=== PATIENT | female | born 1940 | race Caucasian/White ===

== ENCOUNTER 2022-12-16 16:30 | Inpatient (IN) | payer MEDICARE, BC, SELFPAY ==
[2022-12-16 16:37] VITALS: BP 146/76; PULSE 78; RESP 20; TEMP 37.2; O2SAT 97; BMI 40.2
--- NOTE | 2022-12-16 16:52 | CRLHL7_ITS ---
For Patients: As a result of the Cures Act, medical imaging exams and procedure reports are released immediately into your electronic medical record. You may view this report before your referring provider. If you have questions, please contact your health care provider. INDICATION: Cough, left basilar rales, weakness TECHNIQUE: Chest 2 view. Permanently recorded images are archived. COMPARISON: None. FINDINGS: Cardiovascular and mediastinum: Cardiomegaly. Atherosclerotic thoracic. Lungs and pleural spaces: The lungs are clear. No pleural effusion or pneumothorax. Bones and soft tissues: Degenerative changes of the spine and bilateral shoulders. No acute findings. IMPRESSION: No evidence of an acute pulmonary process. Cardiomegaly. Dictated by Frandy Tinsley MD @ 12/16/2022 7:50:30 PM (Electronically Signed)
--- NOTE | 2022-12-16 16:53 | ED_ITS ---
HPI - General Adult General Date Seen: 12/16/22 Chief complaint: Nausea/Vomiting Stated complaint: Ill Time Seen by Provider: 12/16/22 16:31 History of Present Illness HPI narrative: This is a pleasant 82-year-old female presenting by private car with her daughter from home for evaluation of generalized weakness, fall. She has a past medical history including hypertension, hypothyroidism, chronic and dysgeusia after COVID last year, obesity, previous ventral/incisional hernia with surgical repair. She does not have a history of heart disease, stents, valve surgery, or arrhythmias. No history of stroke. She notes that she has had chronically a poor appetite since she had coronavirus last December. This is due to chronic lost of taste and smell. She has had cough ongoing for the past few weeks which she initially attributed to dust from the gravel road by her house and the dry weather. However her cough has gotten worse lately, in the past few days. She is not sure if he is producing any sputum or not but she is coughing a lot more. Her cough sounds wet. She is not short of breath. She does have a little bit of pain in the center of her chest only when she coughs. Since Monday, 2 days ago she has also been more nauseous than normal and has had a dramatic decrease in her oral intake. Her daughter has been forcing her to drink fluids such as water and 7 up. Even with that she is producing less urine. She does not have any dysuria, urgency, frequency, hematuria. She is not having diarrhea. She is not really short of breath. This morning when she was trying to get up and get out of bed she was very weak and she slid off the edge of her bed onto the floor. She did land on her right leg but did not injure it. She was too weak to get herself off the floor so she slid herself across the floor to get to her phone. Subsequently she called her daughter. Her daughter and son-in-law responded in the helped lift drop the floor. Because of her weakness they brought her to the ER. She normally receives her care through the [facility]. They called the ER at [place] and were told that the ER was very busy so they chose to come here to [place] instead. She does not have a headache. No sore throat. No earache. No focal numbness or weakness in her arms or legs. She just has generalized weakness. Although she landed on her right leg this morning is not painful and she does not think it is injured from the fall. She says it was more of a gentle slide than a fall. She has been nauseous and had poor appetite but no vomiting today. She had 1 episode of nonbilious, nonbloody emesis yesterday. Bowel movements have been normal. Nothing black or bloody. She has been urinating less than normal but no other symptoms. She does not have complete recollection of her med list but she thinks she takes a thyroid medicine, some blood pressure pills, pills for her macular degeneration. She takes aspirin. No other anticoagulant. She does have a diuretic that she takes only as needed when she gets peripheral edema. She has not been needing to take it lately because she has really been doing well with her salt intake and not experiencing much edema. Related Data Home Medications Medication Instructions Recorded Confirmed alprazolam 0.25 mg tablet 0.25 mg PO BID PRN 12/16/22 12/16/22 aspirin 325 mg tablet 325 mg PO DAILY 12/16/22 12/16/22 atenolol 25 mg tablet 25 mg PO DAILY 12/16/22 12/16/22 levothyroxine 125 mcg tablet 125 mcg PO DAILY 12/16/22 12/16/22 [facility] 12/16/22 qqfienug-lbb-vzyu-FA-Ca carb-vit K 1 tab PO DAILY 12/16/22 12/16/22 18 mg iron-400 mcg-500 mg tablet (One-A-Day Womens Formula) sodium chloride 5 % eye drops 1 drp ophthalmic (eye) DAILY 12/16/22 12/16/22 Allergies Allergy/AdvReac Type Severity Reaction Status Date / Time No Known Drug Allergies Allergy Verified 12/16/22 16:37 [facility] Medical History (Updated 12/16/22 @ 21:32 by Sita Keyes MD) Umbilical hernia ?K42.9 - Umbilical hernia without obstruction or gangrene (ICD-10) Anemia ?D64.9 - Anemia, unspecified (ICD-10) H/O rosacea ?Z87.2 - Personal history of diseases of the skin and subcutaneous tissue (ICD-10) Surgical History (Updated 12/16/22 @ 21:28 by Sita Keyes MD) H/O: hysterectomy ?Z90.710 - Acquired absence of both cervix and uterus (ICD-10) History of hip replacement ?Z96.649 - Presence of unspecified artificial hip joint (ICD-10) Social History (Updated 12/16/22 @ 21:16 by Sita Keyes MD) Narrative: Kat is and lives in [place]. She has 4 adult children and daughter Luz Elena would be medical decision maker if needed. 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 She is also known for her lefse. Nonsmoker, no ETOH. Requests DNR/DNI status. Smoking Status: Unknown if ever smoked Do you use any of these nicotine containing products: None Second hand tobacco smoke exposure: No How often do you have a drink containing alcohol: never How often do you have six or more drinks on one occasion: Never AUDIT-C Alcohol total score: 0 Non-prescribed substance use: denies use service: No Exam Narrative: Exam Narrative: Constitutional: Appears well-developed and well-nourished. Alert. Conversant. She looks tired and run down but not overtly septic. Is a bit weak and requires slight assist to sit up in bed. HENT: Head: Atraumatic. Nose: Nose normal. Mouth/Throat: Oral mucosa is clear but mucous membranes are dry and oral secretions are tacky. no trismus. Pharynx normal. Tonsils symmetric. No tonsillar enlargement, erythema, or exudate. Eyes: Conjunctivae normal. EOM normal. Pupils equal, round, and reactive to light. No scleral icterus. Neck: Normal range of motion. Neck supple. No tracheal deviation present. No JVD Cardiovascular: Normal rate, regular rhythm. No gallop. No friction rub. No murmur heard. Symmetric radial and PT artery pulses Pulmonary/Chest: Effort normal. No stridor. No respiratory distress. No wheezes. Left basilar>> right basilar rales. No rhonchi . No tenderness. Abdominal: Soft. Bowel sounds normal. No distension. Palpable upper midline nontender mass consistent with ventral hernia. No evidence for incarceration or obstruction. No tenderness. No rebound. No guarding. Musculoskeletal: RUE: Normal range of motion. No tenderness. No deformity LUE: Normal range of motion. No tenderness. No deformity RLE: Normal range of motion. Trace edema. No tenderness. No deformity LLE: Normal range of motion. Trace edema. No tenderness. No deformity Lymph: No cervical adenopathy. Neurological: Mental status normal. Attention normal. Alert and oriented x3. GCS 15. Memory normal. Speech fluent. Cognition normal. Cranial Nerves intact II-XII except I did not formally test gag or visual acuity. EOMI. Palate elevates symmetrically and tongue protrudes in the midline. Strength: 5/5 trapezius on the right and left 5/5 deltoid on the right and left 5/5 biceps on the right and left 5/5 triceps on the right and left 5/5 ammonia solution preparer on the right and left 5/5 thumb opposition on the right and le ft 5/5 finger abduction on the right and le ft 5/5 hip flexors (L3) on the right and le ft 5/5 quadriceps (L4) on the right and lef t 5/5 tibialis anterior on the right and l eft 5/5 EHL (L5) on the right and left 5/5 gastrocnemius (S1) on the right and left 5/5 hamstring on the right and left Sensation intact to light touch in both upper extremities (C4-T1) Sensation intact to light touch in Both lower extremities (L4-S1). Finger to nose and coordination normal. Gait not assessed due to generalized weak. Normal coordination Skin: Skin is warm and dry. No rash noted. No pallor. Normal capillary refill. Psychiatric: Normal mood. Normal affect. Const: Vital Signs, click to edit/add: Vital Signs - 24 hr 12/16/22 16:37 Temperature 99 F Pulse Rate [Pulse Oximeter] 78 Respiratory Rate 20 Blood Pressure [Ri ght Upper Arm] 146/76 H Pulse Oximetry 97 Oxygen Delivery Me thod Room Air Course Vital Signs Vital signs: Initial Vital Signs Temperature 99 F 12/16/22 16:37 Temperature Source Temporal Artery Scan 12/16/22 16:37 Pulse Rate 78 12/16/22 16:37 Respiratory Rate 20 12/16/22 16:37 Blood Pressure 146/76 H 12/16/22 16:37 Blood Pressure Mean 99 12/16/22 16:37 Blood Pressure Position Semi-Fowlers 12/16/22 16:37 Pulse Oximetry 97 12/16/22 16:37 Oxygen Delivery Method Room Air 12/16/22 16:37 Vital Signs Temperature 99 F 12/16/22 16:37 Pulse Rate 78 12/16/22 16:37 Respiratory Rate 20 12/16/22 16:37 Blood Pressure 146/76 H 12/16/22 16:37 Pulse Oximetry 97 12/16/22 16:37 Oxygen Delivery Method Room Air 12/16/22 16:37 Temperature 99 F 12/16/22 16:37 Pulse Rate 78 12/16/22 16:37 Respiratory Rate 20 12/16/22 16:37 Blood Pressure 146/76 H 12/16/22 16:37 Pulse Oximetry 97 12/16/22 16:37 Oxygen Delivery Method Room Air 12/16/22 16:37 Medical Decision Making MDM Narrative Medical decision making narrative: Pleasant 82-year-old female who generally gets her medical clear through the [facility] presents to the ER today with a 3 day history of generalized weakness, poor appetite, decreased oral intake, nausea, 1 episode of vomiting. She also has a chronic cough worse over the past couple of days. Clinically she appears to be quite dehydrated. She has generalized weakness and is not able to walk and care for herself at home. Differential for symptoms is broad. Fortunately COVID, influenza, RSV is negative by PCR. On my clinical exam she had does have left basilar rales. However chest x-ray does not show any clear infiltrate. I wonder if there may be a pneumonia it is not yet blossoming into a full x-ray infiltrate because of dehydration. Fortunately she is satting normally on room air. No respiratory distress or hypoxia. She is not having any wheezing to suggest COPD. Consider possible myocardial ischemia. EKG shows atrial fibrillation, rate controlled, but No ischemia. Troponin normal. Atrial fibrillation is a new diagnosis for this patient. CBC shows normal white count but a neutrophil predominance. She is mildly anemic with a hemoglobin of 10 but is not have any recent black or bloody stools or hematemesis or any clear symptoms of bleeding. She is also thrombocytopenic with a platelet count of 109. Unclear if this is her baseline or not. No signs of bleeding. Daughter was able to show me previous labs through her [facility] my chart. She last CBC was in April 2021. At that time white blood cell count was normal. Hemoglobin was 10.4 (unchanged from today) and platelet count was slightly low at 155. Metabolic probe shows mildly low sodium at 1:33 a.m., low bicarb at 19 con sistent with dehydration. BUN and creatinine are abnormal at 49 and 2.0.. Most recent kidney function test was in July. At that time BUN was 25, creatinine 0.96. we suspect this is an acute kidney injury from dehydration. Blood sugar normal. Anion gap normal. Urinalysis is ordered here in the ER, but not obtained because the patient is not producing urine yet. She is receiving her 2 L of IV fluid. Venous lactic is minimally elevated 2.1, suspect due to dehydration. We will recheck after she completes 2 L of fluid. Discussed with Dr. Keyes. Lab Data Labs: Lab Results 12/16/22 12/16/22 12/16/22 Range/Units 16:35 17:40 18:20 WBC 8.17 (4.50-11.00) K/uL RBC 3.52 L (4.00-5.20) m/uL Hgb 10.4 L (12.0-16.0) gm/dL Hct 33.1 (33.0-51.0) % MCV 94 (80-100) fL MCH 30 (26-34) pg MCHC 31 L (32-36) gm/dL RDW Coeff of Nirmala 15.6 H (11.5-15.5) % Plt Count 109 L (140-440) K/uL Neut % (Auto) 82.7 H (42.0-72.0) % Lymph % (Auto) 5.1 L (20-44) % Yancey % (Auto) 11.4 H (0.0-11.0) % Eos % (Auto) 0.0 (0.0-7.0) % Baso % (Auto) 0.1 (0.0-3.0) % Neut # (Auto) 6.80 (1.7-7.0) K/uL Lymph # (Auto) 0.40 L (0.90-2.90) K/uL Yancey # (Auto) 0.90 (0.00-0.90) K/UL Eos # (Auto) 0.00 (0.00-0.50) K/uL Baso # (Auto) 0.01 (0.00-0.30) K/uL Abs Immat Gran (auto) 0.06 (0.00-0.30) K/uL Imm/Tot Granulo (auto) 0.7 % Sodium 133 L (135-149) mmol/L Potassium 4.2 (3.6-5.1) mmol/L Chloride 103 (96-114) mmol/L Carbon Dioxide 19 L (20-32) mmol/L Anion Gap 11 (7-15) mEq/L BUN 49 H (7-30) mg/dL Creatinine 2.0 H (0.5-1.5) mg/dL Estimated Creat Clear 16.86 Estimated GFR 24 ml/min Glucose 116 H (60-115) mg/dL Lactate 2.1 H (0.5-1.9) mmol/L Calcium 8.8 (8.4-10.6) mg/dL Total Bilirubin 0.4 (0.1-1.5) mg/dL AST 39 H (12-35) U/L ALT 18 (4-35) U/L Alkaline Phosphatase 57 (40-150) U/L Troponin I 0.04 (0.01-0.04) ng/mL NT-Pro-B Natriuret Pep 7910 pg/mL Total Protein 7.8 (6.0-8.3) g/dL Albumin 4.1 (3.3-5.0) g/dL Lipase 71 (23-300) U/L SARS-CoV-2 (PCR) Negative SARS-CoV-2 (Negative) Influenza Type A (PCR) Negative PCR FLU A (Negative) Influenza Type B (PCR) Negative PCR FLU B (Negative) RSV (PCR) Negative PCR RSV (Negative) Imaging Data Chest x-ray: Attestation: I have reviewed the pertinent imaging results. My impression: Although clinically she has rales in the left base, no definite infiltrate. ECG Data Attestation: I personally reviewed and interpreted this ECG as follows: Interpretation: Atrial fibrillation. rate 73 WA n/a QRS axis normal QR ass access. No pathologic Q-waves. ST segment/T wave: No ST segment elevation or depression. Nonspecific T-wave flattening lead III QTc: 409 Discharge Plan Discharge Clinical Impression: MARTÍN (acute kidney injury), Acute dehydration, Atrial fibrillation, Cough, Thrombocytopenia Patient Disposition: Admitted As Observation
[2022-12-16 17:28] LABS: PCR FLU A Negative PCR FLU A (Negative); PCR FLU B Negative PCR FLU B (Negative); PCR RSV Negative PCR RSV (Negative); SARS PCR* Negative SARS-CoV-2 (Negative)
[2022-12-16] MEDS: 0.9 % SODIUM CHLORIDE 1000 ml 1,000 ML IV ×2 (17:30→19:08)
[2022-12-16 17:48] LABS: Lactate* 2.1 mmol/L (0.5-1.9)
[2022-12-16 17:53] LABS: Basophils Absolute Auto 0.01 K/uL (0.00-0.30); Basophils Percent Auto 0.1 % (0.0-3.0); Hematocrit 33.1 % (33.0-51.0); Hemoglobin* 10.4 gm/dL (12.0-16.0); Immature Granulocytes Abs Auto 0.06 K/uL (0.00-0.30); Immature Granulocytes Pct Auto 0.7 %; Lymphocytes Percent Auto 5.1 % (20-44); Mean Corpuscular HGB Conc 31 gm/dL (32-36); Mean Corpuscular Hemoglobin 30 pg (26-34); Mean Corpuscular Volume 94 fL (80-100); Monocytes Percent Auto 11.4 % (0.0-11.0); Neutrophils Percent Auto 82.7 % (42.0-72.0); Platelet Count* 109 K/uL (140-440); RDW Coefficient of Variation % 15.6 % (11.5-15.5); Red Blood Count 3.52 m/uL (4.00-5.20); White Blood Count* 8.17 K/uL (4.50-11.00)
[2022-12-16 17:55] LABS: Slide Review Reflex No
[2022-12-16 18:34] LABS: Troponin I* 0.04 ng/mL (0.01-0.04)
[2022-12-16 18:53] LABS: Alanine Aminotransferase* 18 U/L (4-35); Albumin* 4.1 g/dL (3.3-5.0); Anion Gap 11 mEq/L (7-15); Aspartate Amino Transferase* 39 U/L (12-35); Bilirubin Total* 0.4 mg/dL (0.1-1.5); Blood Urea Nitrogen* 49 mg/dL (7-30); Calcium* 8.8 mg/dL (8.4-10.6); Carbon Dioxide* 19 mmol/L (20-32); Chloride* 103 mmol/L (96-114); Est. Creatinine Clearance* 16.86; Estimated Glomerular Filt Rate 24 ml/min; Glucose* 116 mg/dL (60-115); Potassium* 4.2 mmol/L (3.6-5.1); Sodium* 133 mmol/L (135-149); Total Protein* 7.8 g/dL (6.0-8.3)
[2022-12-16 18:54] LABS: Alkaline Phosphatase* 57 U/L (40-150)
[2022-12-16 19:14] LABS: Lipase* 71 U/L (23-300)
[2022-12-16 19:28] LABS: NT Pro B Type NatriureticPept* 7910 pg/mL
[2022-12-16 20:30] VITALS: TEMP 37.9
[2022-12-16] MEDS: ACETAMINOPHEN 325 MG TABLET 975 MG PO (20:30)
[2022-12-16 20:38] VITALS: BP 140/77; PULSE 92; RESP 24; TEMP 38.1; O2SAT 93; BMI 40.3
--- NOTE | 2022-12-16 21:01 | PM.IMHP1 ---
Hospitalist- H&P: HPI History of Present Illness Date Seen: 12/16/22 Chief complaint: Ill Narrative: Kat Valente is a 82 year old female who presented to the emergency room with her daughter today for weakness, decreased p.o. intake, fall. Patient has had decreased appetite and weight loss since having COVID last December. She believes she has lost approximately 16 lb in the past year 2/2 dysgeusia. Over the past few days, her appetite has been even lower than usual, and she has also had a cough (present for a few weeks, worse in the last few days). She has been making minimal urine 2/2 poor intake. She notes intermittent nausea and feels that her stomach hurts intermittently when she is hungry. No melena or hematochezia. Unsure of last colonoscopy. Today, she was noted to be more weak and slid off of her bed onto the floor, and was unable to get up. She called her daughter who was able to help her and bring her to the emergency room. ER course and findings: - rate controlled atrial fibrillation on EKG (baseline) - hemoglobin of 10.4 (this is also baseline, per [facility] MyChart), platelets 109 (150 baseline, per MyChart) - elevated lactate - Creatinine 2.0 (<1 per My Chart results) - received 1L bolus of NS - exam consistent with clinical PNA, formal radiology read of CXR negative for acute infectious process, + LVH noted Given patient's illness, weakness, and MARTÍN, she is admitted to the hospital. Upon arrival to the floor, patient noted to have a temperature of 100.5 History updated below, supplemented by my chart review and history from daughter Luz Elena. Review of Systems Narrative: - umbilical hernia, unchanged - 16 lb weight loss in the last year as noted above - no dysuria - intermittent GERD symptoms, often worse at night if she eats supper close to bedtime - daughter notes that patient has anxiety does seem to be worse over the past few months (she occasionally has a tremor when she is anxious); aKt was previously on Lexapro but self discontinued this [facility] Medical History (Updated 12/16/22 @ 21:32 by Sita Keyes MD) Umbilical hernia ?K42.9 - Umbilical hernia without obstruction or gangrene (ICD-10) Anemia ?D64.9 - Anemia, unspecified (ICD-10) H/O rosacea ?Z87.2 - Personal history of diseases of the skin and subcutaneous tissue (ICD-10) Surgical History (Updated 12/16/22 @ 21:28 by Sita Keyes MD) H/O: hysterectomy ?Z90.710 - Acquired absence of both cervix and uterus (ICD-10) History of hip replacement ?Z96.649 - Presence of unspecified artificial hip joint (ICD-10) Social History (Updated 12/16/22 @ 21:16 by Sita Keyes MD) Narrative: Kat is and lives in [place]. She has 4 adult children and daughter Luz Elena would be medical decision maker if needed. 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 She is also known for her lefse. Nonsmoker, no ETOH. Requests DNR/DNI status. Smoking Status: Unknown if ever smoked Do you use any of these nicotine containing products: None Second hand tobacco smoke exposure: No How often do you have a drink containing alcohol: never How often do you have six or more drinks on one occasion: Never AUDIT-C Alcohol total score: 0 Non-prescribed substance use: denies use service: No Meds Home Medications and Allergies Home Medications Medication Instructions Recorded Confirmed Type alprazolam 0.25 mg tablet 0.25 mg PO BID PRN 12/16/22 12/16/22 History aspirin 325 mg tablet 325 mg PO DAILY 12/16/22 12/16/22 History atenolol 25 mg tablet 25 mg PO DAILY 12/16/22 12/16/22 History levothyroxine 125 mcg tablet 125 mcg PO DAILY 12/16/22 12/16/22 History [facility] 12/16/22 History iuodcdio-ony-zuys-FA-Ca carb-vit K 1 tab PO DAILY 12/16/22 12/16/22 History 18 mg iron-400 mcg-500 mg tablet (One-A-Day Womens Formula) sodium chloride 5 % eye drops 1 drp ophthalmic (eye) DAILY 12/16/22 12/16/22 History Allergies Allergy/AdvReac Type Severity Reaction Status Date / Time No Known Drug Allergies Allergy Verified 12/16/22 16:37 Exam Narrative: Exam Narrative: GEN: Alert and answering questions appropriately, does feel warm to touch and appears ill but nontoxic HEENT: EOMIs bilaterally, no scleral icterus, no adenopathy over cervical or clavicular regions CV: Irregular rhythm with rate in the 80s, no concerning murmurs R: No wheezing, rales L base, adequate air movement Ab: soft, nontender, + umbilical mass c/w history of hernia (firm) Ext: wwp, no concerning edema Skin: Malar rash, no other concerning skin lesions noted Neuro: No focal deficits or tremor noted Psych: Appropriate Const: Vital Signs, click to edit/add: Vital Signs - 24 hr 12/16/22 16:37 Temperature 99 F Pulse Rate [Pulse Oximeter] 78 Respiratory Rate 20 Blood Pressure [Ri ght Upper Arm] 146/76 H Pulse Oximetry 97 Oxygen Delivery Me thod Room Air Hospitalist - H&P: Result Labs Labs: Short CBC 12/16/22 Range/Units 17:40 WBC 8.17 (4.50-11.00) K/uL Hgb 10.4 L (12.0-16.0) gm/dL Hct 33.1 (33.0-51.0) % Plt Count 109 L (140-440) K/uL BMP 12/16/22 18:20 Sodium 133 L Potassium 4.2 Chloride 103 Carbon Dioxide 19 L BUN 49 H Creatinine 2.0 H Glucose 116 H Calcium 8.8 Cardiac Enzymes 12/16/22 Range/Units 18:20 Troponin I 0.04 (0.01-0.04) ng/mL Liver Function 12/16/22 Range/Units 18:20 Total Bilirubin 0.4 (0.1-1.5) mg/dL AST 39 H (12-35) U/L ALT 18 (4-35) U/L Alkaline Phosphatase 57 (40-150) U/L Albumin 4.1 (3.3-5.0) g/dL Assessment and Plan Assessment and plan (1) Cough: Problem comment: - in addition to fever and decreased po intake - negative RSV/flu/COVID - exam c/w L-sided pneumonia - formal CXR read negative for infiltrate, but given fever and exam, will initiate Ceftriaxone and Azithromycin 12/16 and repeat CXR 12/17 - obtain TTE to evaluate for any CHF that may be contributing Status: Acute (2) MARTÍN (acute kidney injury): Problem comment: - most c/w prerenal azotemia given illness and decreased po intake - continue IVFs, check UA and reassess renal function in the morning Status: Acute (3) Anemia: Problem comment: - baseline Hgb of 10.4 on MyChart review - no evidence of acute bleeding - will add iron studies, PPI Status: Acute (4) Thrombocytopenia: Problem comment: - possibly related to acute illness, continue to follow Status: Acute (5) Atrial fibrillation: Problem comment: - rate controlled, on Atenolol - takes 325 ASA for anticoagulation - follow on telemetry Status: Acute Plan - per above - SCDs and renally dosed Lovenox for ppx - daughter Luz Elena updated at bedside, questions answered
[2022-12-16 21:10] LABS: Lactate* 0.8 mmol/L (0.5-1.9)
[2022-12-16 21:57] LABS: Thyroid Stimulating Hormone* 0.044 uIU/mL (0.270-4.20)
[2022-12-16] MEDS: 0.9 % SODIUM CHLORIDE 1000 ml 1,000 ML 125 ML IV (22:40)
[2022-12-16] MEDS: cefTRIAXone 1 GM in 0.9 % SODIUM CHLORIDE Mini-bag 100 ML IVPB (22:41)
[2022-12-16] MEDS: SODIUM CHLORIDE 0.9 % (FLUSH) 10 ML SYRINGE 5 ML IVF (22:41)
[2022-12-16] MEDS: AZITHROMYCIN 250 MG TABLET 500 MG PO (22:42)
[2022-12-16 22:46] LABS: Procalcitonin* 3.86 ng/mL (<0.50)
[2022-12-16 23:00] VITALS: BP 135/56; PULSE 71; PULSE 80; RESP 22; TEMP 37.2; O2SAT 95
[2022-12-16 23:05] VITALS: TEMP 37.2
[2022-12-17] VITALS (52 sets, daily range): BP systolic 72–156; BP diastolic 31–106; PULSE 72–110; RESP 20–36; TEMP 36.1–38.4; O2SAT 83–98
[2022-12-17] MEDS: OMEPRAZOLE 20 MG CAPSULE DR 40 MG PO (06:44)
[2022-12-17] MEDS: 0.9 % SODIUM CHLORIDE 1000 ml 1,000 ML 125 ML IV ×2 (06:44→08:35)
[2022-12-17] MEDS: LEVOTHYROXINE 125 MCG TABLET PO (06:44)
[2022-12-17 06:48] LABS: Basophils Absolute Auto 0.02 K/uL (0.00-0.30); Basophils Percent Auto 0.4 % (0.0-3.0); Eosinophils Absolute Auto 0.02 K/uL (0.00-0.50); Eosinophils Percent Auto 0.4 % (0.0-7.0); Hematocrit 31.8 % (33.0-51.0); Hemoglobin* 9.8 gm/dL (12.0-16.0); Immature Granulocytes Abs Auto 0.11 K/uL (0.00-0.30); Immature Granulocytes Pct Auto 2.1 %; Lymphocytes Percent Auto 8.6 % (20-44); Mean Corpuscular HGB Conc 31 gm/dL (32-36); Mean Corpuscular Hemoglobin 30 pg (26-34); Mean Corpuscular Volume 96 fL (80-100); Monocytes Percent Auto 7.5 % (0.0-11.0); Platelet Count* 96 K/uL (140-440); RDW Coefficient of Variation % 15.9 % (11.5-15.5); Red Blood Count 3.31 m/uL (4.00-5.20); White Blood Count* 5.34 K/uL (4.50-11.00)
[2022-12-17 06:51] LABS: Slide Review Reflex No
--- NOTE | 2022-12-17 06:51 | PC.NURSE ---
END OF SHIFT NOTE: PT APPEARS DECONDITIONED AND FATIGUED. A&Ox3. DENIES CP, SOB, N/V. AMBULATES WITH A1/WALKER. VSS ON RA; MAX TEMP 100.5 ORALLY; PRN FEVER ACTIVITIES MANAGER GIVEN AND ROOM TEMPERATURE TURNED DOWN; THIS WAS EFFECTIVE. 0-4/10 CHEST/RIB PAIN WITH COUGH. NON-PRODUCTIVE, INTERMITTENT COUGH. PT SLEPT WELL OVERNIGHT. TELE READS AFIB. PT REPORTS ?I DON?T FEEL WEAK THIS MORNING.? INCONTINENT OF BLADDER X1. BED ALARM ON AND CALL LIGHT WITHIN PT?S REACH.
[2022-12-17 07:04] LABS: Albumin* 3.5 g/dL (3.3-5.0); Chloride* 108 mmol/L (96-114); Potassium* 3.9 mmol/L (3.6-5.1); Sodium* 136 mmol/L (135-149)
[2022-12-17 07:06] LABS: Bilirubin Total* 0.4 mg/dL (0.1-1.5); Est. Creatinine Clearance* 16.86; Estimated Glomerular Filt Rate 24 ml/min; Iron* 26 ug/dL (37-170)
[2022-12-17 07:07] LABS: Alanine Aminotransferase* 19 U/L (4-35); Alkaline Phosphatase* 49 U/L (40-150); Anion Gap 8 mEq/L (7-15); Aspartate Amino Transferase* 45 U/L (12-35); Blood Urea Nitrogen* 53 mg/dL (7-30); Calcium* 8.2 mg/dL (8.4-10.6); Carbon Dioxide* 20 mmol/L (20-32); Glucose* 96 mg/dL (60-115); Total Protein* 6.8 g/dL (6.0-8.3)
[2022-12-17 07:13] LABS: Appearance Urine Cloudy (Clear); Bilirubin Urine Negative (Negative); Blood Urine Trace-intact (Negative); Color Urine Yellow (Yellow); Glucose Urine Negative (Negative); Ketones Urine Negative (Negative); Leukocyte Esterase Urine 1+ (Negative); Nitrite Urine Positive (Negative); Protein Urine 2+ (Negative); Specific Gravity Urine 1.025 (1.000-1.030); Urobilinogen Urine 0.2 (0.2-1.0); pH Urine 6.5 (5.0-8.5)
[2022-12-17 07:15] LABS: Percent Iron Saturation 11 % (20-50); Total Iron Binding Capacity 228 ug/dL (265-497)
[2022-12-17 07:24] LABS: Procalcitonin* 4.92 ng/mL (<0.50)
[2022-12-17 07:25] LABS: Bacteria Urine Many; RBC Urine 0-2 (0-2); Squamous Epithelial Cell Urine Moderate (None-Few)
[2022-12-17 07:26] LABS: Fine Granular Casts Urine Few
[2022-12-17] MEDS: atenoloL 25 MG TABLET PO (08:34)
[2022-12-17] MEDS: ALPRAZolam 0.25 MG TABLET PO (11:11)
--- NOTE | 2022-12-17 11:52 | PC.NURSE ---
CHEMICAL RESEARCH TECHNICIAN APPLIED MEPILEX SACRAL BORDER DRESSING TO SACRAL/COCCYX AREA THIS MORNING AFTER CLEANSING AND PATTING DRY DUE TO FRAGILE SKIN NOTED TO AREA.
--- NOTE | 2022-12-17 11:55 | PC.NURSE ---
PATIENT HAD AN EPISODE OF ANXIETY AT APPROXIMATELY 1030 THIS MORNING IN WHICH HEART RATE WAS IN THE 120s, RESPIRATIONS NOTED TO BE 36 PER MINUTE AND STAFF OBSERVED PATIENT TO HAVE BILATERAL HAND TREMORS WITH MOUTH BREATHING OBSERVED. O2 SAT 80% ON RA- PATIENT WAS STARTED ON OXYMASK AT 3 LPM DUE TO NOT BREATHING THROUGH NOSE DESPITE EDUCATION. TEMP AFEBRILE AT 98.3. STAFF ENCOURAGED DEEP BREATHING WITH PATIENT AND GAVE PRN ALPRAZOLAM. PATIENT'S FAMILY VISITING AND REPORT THAT PATIENT HAS A HX OF ANXIETY. FAMILY ALSO STATES PATIENT USED TO TAKE AN ANTIDEPRESSANT IN THE PAST THOUGH CHOSE TO STOP TAKING MEDICATION. O2 HAS BEEN TURNED DOWN TO 1 LPM WITH O2 SAT OF 95% NOTED- STAFF MONITORING HEART RATE AT THIS TIME TO PROMOTE HEART RATE TO DECREASE.
--- NOTE | 2022-12-17 12:31 | PC.NURSE ---
PATIENT NOTED TO HAVE PULLED IV TO R HAND NEAR INDEX FINGER OUT THIS MORNING WHEN EXPERIENCING HAND TREMORS. PATIENT EATING LUNCH AND STAFF WILL THEN ATTEMPT TO PLACE NEW IV.
[2022-12-17] MEDS: ACETAMINOPHEN 325 MG TABLET 975 MG PO (14:16)
--- NOTE | 2022-12-17 14:46 | CRLHL7_ITS ---
For Patients: As a result of the Century Cures Act, medical imaging exams and procedure reports are released immediately into your electronic medical record. You may view this report before your referring provider. If you have questions, please contact your health care provider. INDICATION: Fever, difficulty breathing, history of kidney disease. TECHNIQUE: CT chest, abdomen and pelvis acquired with 99 cc of Isovue 370 IV contrast. COMPARISON: None. FINDINGS: Limited evaluation secondary patient positioning. CHEST: Cardiovascular structures: Cardiomegaly with coronary artery calcifications. Pulmonary arterial enlargement. Mediastinum and jenny: No mass or adenopathy. Lungs and pleura: Scattered atelectasis. Mild mosaic attenuation throughout the lungs. No suspicious nodules, infiltrates, or effusions. Chest wall and axilla: No mass or adenopathy. Bones: Degenerative changes. ABDOMEN AND PELVIS: Liver: Unremarkable. Gallbladder and bile ducts: Unremarkable. Pancreas: Unremarkable. Spleen: Unremarkable. Adrenal glands: Indeterminate 2.7 centimeter left adrenal nodule. Kidneys: Moderate right-sided hydroureteronephrosis secondary to obstructing 6 millimeter stone in the distal right ureter. Multiple left-sided simple renal cysts. GI tract: Colonic diverticulosis without diverticulitis. No bowel obstruction. Vascular structures: Severe aortoiliac arterial calcification. Lymph nodes: Unremarkable. Miscellaneous: Unremarkable. No free air or significant free fluid. Pelvic Organs: Unremarkable. Bones: Right hip arthroplasty causing streak artifact. Degenerative changes. IMPRESSION: Moderate right-sided hydroureteronephrosis secondary to 6 millimeter obstructing stone in the distal right ureter. No CT evidence of infection in the chest, abdomen, or pelvis as questioned. Mild mosaic attenuation at the lungs which can be seen in small vessel/airway disease. No focal consolidations. Indeterminate 2.7 centimeter left adrenal nodule. Recommend correlation with prior imaging if available. If not recommend outpatient adrenal washout protocol CT. Cardiomegaly with coronary artery calcifications. Pulmonary hypertension. Colonic diverticulosis without diverticulitis. Please note that all CT scans at this facility use dose modulation, iterative reconstruction, and/or weight-based dosing when appropriate to reduce radiation dose to as low as reasonably achievable. Dictated by Floyd Mendoza MD @ 12/17/2022 5:13:05 PM (Electronically Signed)
--- NOTE | 2022-12-17 15:06 | PM.IMPN1 ---
Progress Note: A&P Assessment and plan (1) Cough: Problem details: - in addition to fever and decreased po intake - negative RSV/flu/COVID - exam c/w L-sided pneumonia - formal CXR read negative for infiltrate, but given fever and exam, initiated Ceftriaxone and Azithromycin 12/16 - obtain TTE to evaluate for any CHF that may be contributing - CT scan of chest Status: Acute (2) MARTÍN (acute kidney injury): Problem details: - most c/w prerenal azotemia given illness and decreased po intake - continue IVFs, check UA and reassess renal function in the morning Status: Acute (3) Anemia: Problem details: - baseline Hgb of 10.4 on MyChart review - no evidence of acute bleeding - iron deficiency, PPI Status: Acute (4) Thrombocytopenia: Problem details: - possibly related to acute illness, continue to follow Status: Acute (5) Atrial fibrillation: Problem details: - on Atenolol, more tachycardic as she is febrile - takes 325 ASA for anticoagulation - follow on telemetry - recheck EKG Status: Acute (6) Acute encephalopathy: Problem details: - Likely related to her acute illness and febrile state - CT scan of chest, abdomen, pelvis - re check blood culture and obtain venous blood gas - consider broadening spectrum of antibiotics - dextrose with normal saline IV, and monitor blood sugars Status: Acute Plan 1. Reviewed impression with patient in the morning and she is agreeable 2. Will try to contact her family as her condition is not stable Time Spent With Patient Total time spent: 60 minutes Subjective Time Seen by Provider: 08:30 Date Seen: 12/17/22 Interval history: Hospital day 2. I have assessed her 3 times throughout the day starting this morning. In the afternoon she became increasingly encephalopathic, more sleepy, unable to follow conversation, unable to follow simple 1 step commands. When I 1st saw her this morning she indicated that she felt better. Cough was better. 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 Her confusion and lassitude evolved over the course of the day. Did become febrile later on. Exam Narrative: Exam Narrative: Examined in her hospital room throughout the day. Appears comfortable in no acute distress. As time evolves she is rather sleepy but arousable. She has rales in both bases, left larger than right. Lungs otherwise clear. Heart tones with regular rhythm, normal S1-S2. Becomes tachycardic later in the day. Abdomen with active bowel sounds, soft, nontender. Extremities without edema. Skin is intact without rashes. No focal motor neurologic deficits. No tremor, asterixis, or ataxia. Const: Vital Signs, click to edit/add: Vital Signs - 24 hr 12/16/22 16:37 12/16/22 20:30 12/16/22 20:38 Temperature 99 F 100.2 F H 100.5 F H Pulse Rate Pulse Rate [Pulse Oximeter] 78 92 Respiratory Rate 20 24 Blood Pressure [Le ft Arm] 140/77 H Blood Pressure [Ri ght Upper Arm] 146/76 H Pulse Oximetry 97 93 Oxygen Delivery Me thod Room Air Room Air 12/16/22 20:38 12/16/22 23:00 12/16/22 23:00 Temperature Pulse Rate 71 Pulse Rate [Pulse Oximeter] 80 Respiratory Rate 24 22 Blood Pressure [Le ft Arm] Blood Pressure [Ri ght Upper Arm] Pulse Oximetry 93 Oxygen Delivery Fl thod Room Air 12/16/22 23:00 12/16/22 23:00 12/16/22 23:05 Temperature 98.9 F 98.9 F Pulse Rate Pulse Rate [Pulse Oximeter] 80 Respiratory Rate 22 22 Blood Pressure [Le ft Arm] 135/56 L Blood Pressure [Ri ght Upper Arm] Pulse Oximetry 95 95 Oxygen Delivery Fl thod Room Air Room Air 12/17/22 04:00 12/17/22 07:38 12/17/22 07:41 Temperature 97.7 F 98.2 F Pulse Rate 82 Pulse Rate [Pulse Oximeter] 79 72 Respiratory Rate 20 20 Blood Pressure [Le ft Arm] 148/73 H 152/75 H Blood Pressure [Ri ght Upper Arm] Pulse Oximetry 98 97 Oxygen Delivery Me thod Room Air Room Air 12/17/22 07:47 12/17/22 11:20 12/17/22 12:12 Temperature 98.3 F Pulse Rate Pulse Rate [Pulse Oximeter] 110 H Respiratory Rate 20 24 Blood Pressure [Le ft Arm] 156/106 H 154/63 H Blood Pressure [Ri ght Upper Arm] Pulse Oximetry 97 94 Oxygen Delivery Me thod Room Air OxyMask 12/17/22 14:16 Temperature 101.1 F H Pulse Rate Pulse Rate [Pulse Oximeter] Respiratory Rate Blood Pressure [Le ft Arm] Blood Pressure [Ri ght Upper Arm] Pulse Oximetry Oxygen Delivery Me thod Labs Labs: Laboratory Results - last 24 hr 12/16/22 12/16/22 12/16/22 16:35 17:40 18:20 WBC 8.17 RBC 3.52 L Hgb 10.4 L Hct 33.1 MCV 94 MCH 30 MCHC 31 L RDW Coeff of Nirmala 15.6 H Plt Count 109 L Neut % (Auto) 82.7 H Lymph % (Auto) 5.1 L Mellette % (Auto) 11.4 H Eos % (Auto) 0.0 Baso % (Auto) 0.1 Neut # (Auto) 6.80 Lymph # (Auto) 0.40 L Mellette # (Auto) 0.90 Eos # (Auto) 0.00 Baso # (Auto) 0.01 Abs Immat Gran (auto) 0.06 Imm/Tot Granulo (auto) 0.7 Sodium 133 L Potassium 4.2 Chloride 103 Carbon Dioxide 19 L Anion Gap 11 BUN 49 H Creatinine 2.0 H Estimated Creat Clear 16.86 Estimated GFR 24 Glucose 116 H Lactate 2.1 H Calcium 8.8 Iron TIBC % Saturation Ferritin Total Bilirubin 0.4 AST 39 H ALT 18 Alkaline Phosphatase 57 Troponin I 0.04 NT-Pro-B Natriuret Pep 7910 Total Protein 7.8 Albumin 4.1 Lipase 71 Procalcitonin 3.86 H TSH 0.044 L Urine Color Urine Appearance Urine pH Ur Specific Nicolaus Urine Protein Urine Glucose (UA) Urine Ketones Urine Blood Urine Nitrite Urine Bilirubin Urine Urobilinogen Ur Leukocyte Esterase Urine RBC Urine WBC Ur Squamous Epith Cells Urine Bacteria Fine Granular Casts SARS-CoV-2 (PCR) Negative SARS-CoV-2 Influenza Type A (PCR) Negative PCR FLU A Influenza Type B (PCR) Negative PCR FLU B RSV (PCR) Negative PCR RSV Lab Acknowledgement 12/16/22 12/16/22 12/16/22 21:06 21:12 21:33 WBC RBC Hgb Hct MCV MCH MCHC RDW Coeff of Nirmala Plt Count Neut % (Auto) Lymph % (Auto) Mellette % (Auto) Eos % (Auto) Baso % (Auto) Neut # (Auto) Lymph # (Auto) Mellette # (Auto) Eos # (Auto) Baso # (Auto) Abs Immat Gran (auto) Imm/Tot Granulo (auto) Sodium Potassium Chloride Carbon Dioxide Anion Gap BUN Creatinine Estimated Creat Clear Estimated GFR Glucose Lactate 0.8 Calcium Iron TIBC % Saturation Ferritin Total Bilirubin AST ALT Alkaline Phosphatase Troponin I NT-Pro-B Natriuret Pep Total Protein Albumin Lipase Procalcitonin TSH Urine Color Urine Appearance Urine pH Ur Specific Nicolaus Urine Protein Urine Glucose (UA) Urine Ketones Urine Blood Urine Nitrite Urine Bilirubin Urine Urobilinogen Ur Leukocyte Esterase Urine RBC Urine WBC Ur Squamous Epith Cells Urine Bacteria Fine Granular Casts SARS-CoV-2 (PCR) Influenza Type A (PCR) Influenza Type B (PCR) RSV (PCR) Lab Acknowledgement Test Added Test Added 12/17/22 12/17/22 05:40 06:05 WBC 5.34 RBC 3.31 L Hgb 9.8 L Hct 31.8 L MCV 96 MCH 30 MCHC 31 L RDW Coeff of Nirmala 15.9 H Plt Count 96 L Neut % (Auto) 81.0 H Lymph % (Auto) 8.6 L Mellette % (Auto) 7.5 Eos % (Auto) 0.4 Baso % (Auto) 0.4 Neut # (Auto) 4.30 Lymph # (Auto) 0.50 L Mellette # (Auto) 0.40 Eos # (Auto) 0.02 Baso # (Auto) 0.02 Abs Immat Gran (auto) 0.11 Imm/Tot Granulo (auto) 2.1 Sodium 136 Potassium 3.9 Chloride 108 Carbon Dioxide 20 Anion Gap 8 BUN 53 H Creatinine 2.0 H Estimated Creat Clear 16.86 Estimated GFR 24 Glucose 96 Lactate Calcium 8.2 L Iron 26 L TIBC 228 L % Saturation 11 L Ferritin 238.0 Total Bilirubin 0.4 AST 45 H ALT 19 Alkaline Phosphatase 49 Troponin I NT-Pro-B Natriuret Pep Total Protein 6.8 Albumin 3.5 Lipase Procalcitonin 4.92 H TSH Urine Color Yellow Urine Appearance Cloudy A Urine pH 6.5 Ur Specific Nicolaus 1.025 Urine Protein 2+ A Urine Glucose (UA) Negative Urine Ketones Negative Urine Blood Trace-intact A Urine Nitrite Positive A Urine Bilirubin Negative Urine Urobilinogen 0.2 Ur Leukocyte Esterase 1+ A Urine RBC 0-2 Urine WBC 5-10 A Ur Squamous Epith Cells Moderate A Urine Bacteria Many A Fine Granular Casts Few A SARS-CoV-2 (PCR) Influenza Type A (PCR) Influenza Type B (PCR) RSV (PCR) Lab Acknowledgement
[2022-12-17] MEDS: 5 % DEXTROSE/0.9% SOD CHLORIDE 1,000 ML 75 ML IV (15:46)
[2022-12-17] MEDS: 0.9 % SODIUM CHLORIDE 500 ML 500 ML IV (15:47)
[2022-12-17 16:15] LABS: HCO3 VBG 13 mmol/L (21-28); PCO2 VBG 27 mmHG (40-50); PO2 VBG 48.6 mmHG (25-47); pH VBG 7.307 (7.32-7.43)
[2022-12-17 16:18] LABS: Basophils Percent Auto 0.4 % (0.0-3.0); Eosinophils Percent Auto 0.4 % (0.0-7.0); Hematocrit 27.2 % (33.0-51.0); Hemoglobin* 8.4 gm/dL (12.0-16.0); Immature Granulocytes Pct Auto 0.8 %; Lymphocytes Percent Auto 3.6 % (20-44); Mean Corpuscular HGB Conc 31 gm/dL (32-36); Mean Corpuscular Hemoglobin 30 pg (26-34); Mean Corpuscular Volume 96 fL (80-100); Monocytes Percent Auto 1.6 % (0.0-11.0); Neutrophils Percent Auto 93.2 % (42.0-72.0); Red Blood Count 2.83 m/uL (4.00-5.20); White Blood Count* 2.52 K/uL (4.50-11.00)
[2022-12-17 16:40] LABS: Platelet Count* 150 K/uL (140-440); Slide Review Reflex Yes
[2022-12-17 16:42] LABS: Slide Review Acceptable Review (Acceptable)
--- NOTE | 2022-12-17 16:54 | PC.NURSE ---
PATIENT TRANSFERRED TO [facility] DUE TO BEING LETHARGIC AND LOW B/P OF 85/48 NOTED UPON RETURN FROM CT. 18 FR 10 CC LAUREN CATHETER INSERTED WITH APPROXIMATELY 300 ML YELLOW URINARY OUTPUT NOTED AT THIS TIME. NO HEMATURIA OR CLOUDY APPEARANCE OBSERVED TO URINE. PATIENT DOES OPEN EYES WHEN SPOKEN TO AND DENIES PAIN WHEN ASKED. B/P OF 78/45 AT 1645. MD MOTT AWARE OF PATIENT'S CHANGE IN CONDITION. DAUGHTER ELVIA ALSO UPDATED AND IS CURRENTLY VISITING.
[2022-12-17 17:27] LABS: Glucose* 132 mg/dL (60-115)
--- NOTE | 2022-12-17 17:57 | CRLHL7_ITS ---
For Patients: As a result of the Cures Act, medical imaging exams and procedure reports are released immediately into your electronic medical record. You may view this report before your referring provider. If you have questions, please contact your health care provider. INDICATION: Confirm central line placement. TECHNIQUE: Chest 1 views. COMPARISON: CT December 17, 2022. FINDINGS: Cardiovascular and mediastinum: Stable cardiomegaly. Central venous congestion. Right IJ catheter with tip in the superior cavoatrial junction. Lungs and pleural spaces: Lungs are clear. No sign of infiltrate or mass. No sign of pleural effusion. No pneumothorax. Bones and soft tissues: No significant findings. IMPRESSION: Right IJ catheter with tip in the superior cavoatrial junction. Dictated by Floyd Mendoza MD @ 12/17/2022 7:27:59 PM (Electronically Signed)
[2022-12-17] MEDS: PIPERACILLIN/TAZOBACTAM 3.375 GM in 0.9 % SODIUM CHLORIDE Mini-bag 100 ML IVPB (18:02)
[2022-12-17] MEDS: 0.9 % SODIUM CHLORIDE 1000 ml 1,000 ML IV ×2 (18:03→19:15)
[2022-12-17] MEDS: 0.9 % SODIUM CHLORIDE 1000 ml 1,000 ML 2000 ML IV (18:03)
--- NOTE | 2022-12-17 18:14 | PM.DST ---
Transfer Discharge Sum: Prov Provider Date Seen: 12/17/22 Date of admission: 12/16/22 20:53 Primary care physician: Not a Local Provider Attending physician on admission: Sita Keyes Consults: 12/16/22 20:53 Consult to Nutrition [CONS] Routine Comment: Reason for consult:: Nutritional Consult Comment: weight loss, post-COVID Consult to Physical Therapy [CONS] Routine Comment: Reason(s) for PT Consult:: Evaluate and Treat Any Restrictions?:: No Restrictions Consult to Architecture Analyst [CONS] Routine Comment: Reason for Consult:: Discharge Planning Needs 12/16/22 20:55 Consult to Occupational Therapy [CONS] Routine Comment: Reason(s) for OT Consult:: Evaluate and Treat Any Restrictions?:: No Restrictions 12/17/22 01:16 Consult to Occupational Therapy [CONS] Routine Comment: Reason(s) for OT Consult:: ADLs Prior to Discharge Any Restrictions?:: No Restrictions Consult to Physical Therapy [CONS] Routine Comment: Reason(s) for PT Consult:: Recent Falls Any Restrictions?:: No Restrictions Consult to Architecture Analyst [CONS] Routine Comment: Reason for Consult:: Social Service Consult Attending physician on discharge: Sita Keyes Anticipated date of transfer: 12/17/22 Receiving physician/facility: [facility] DS: Diagnosis Discharge Diagnosis (1) Sepsis associated hypotension: Status: Acute (2) Nephrolithiasis: Status: Acute (3) Cough: Status: Acute (4) MARTÍN (acute kidney injury): Status: Acute (5) Anemia: Status: Acute Problem details: - baseline Hgb of 10.4 (6) Thrombocytopenia: Status: Acute (7) Atrial fibrillation: Status: Acute Problem details: - paroxysmal, on 325 mg of aspirin for prophylaxis and atenolol for rate control (8) Acute encephalopathy: Status: Acute Problem details: - 2/2 cute illness Transfer Discharge Sum: Med Medications Active and Home Medications: Home Medications alprazolam 0.25 mg tablet 0.25 mg PO BID PRN 12/16/22 [History Confirmed 12/16/22] aspirin 325 mg tablet 325 mg PO DAILY 12/16/22 [History Confirmed 12/16/22] atenolol 25 mg tablet 25 mg PO DAILY 12/16/22 [History Confirmed 12/16/22] levothyroxine 125 mcg tablet 125 mcg PO DAILY 12/16/22 [History Confirmed 12/16/22] [facility] 12/16/22 [History] [id number] carb-vit K 18 mg iron-400 mcg-500 mg tablet (One-A-Day Womens Formula) 1 tab PO DAILY 12/16/22 [History Confirmed 12/16/22] sodium chloride 5 % eye drops 1 drp ophthalmic (eye) DAILY 12/16/22 [History Confirmed 12/16/22] Active Medications Acetaminophen (Acetaminophen 325 Mg Tablet) 975 mg PO Q6H PRN Last Admin: 12/17/22 14:16 Dose: 975 mg Alprazolam (Alprazolam 0.25 Mg Tablet) 0.25 mg PO BID PRN Last Admin: 12/17/22 11:11 Dose: 0.25 mg Atenolol (Atenolol 25 Mg Tablet) 25 mg PO DAILY [facility] Last Admin: 12/17/22 08:34 Dose: 25 mg Sodium Chloride (0.9 % Sodium Chloride 1000 Ml) 1,000 mls @ 125 mls/hr IV .Q8H [facility] Stop: 12/18/22 00:38 Last Admin: 12/17/22 08:35 Dose: 125 mls/hr Dextrose/Sodium Chloride (5 % Dextrose/0.9% Sod Chloride) 1,000 mls @ 75 mls/hr IV .[id number] [facility] Last Admin: 12/17/22 15:46 Dose: 75 mls/hr Piperacillin Sod/Tazobactam (Sod 3.375 gm/ Sodium Chloride) 100 mls @ 200 mls/hr IVPB Q6H [facility] Last Admin: 12/17/22 18:02 Dose: 200 mls/hr Sodium Chloride (0.9 % Sodium Chloride 1000 Ml) 1,000 mls @ 2,000 mls/hr IV .Q30M [facility] Stop: 12/17/22 18:15 Last Admin: 12/17/22 18:03 Dose: 2,000 mls/hr Levothyroxine Sodium (Levothyroxine 125 Mcg Tablet) 125 mcg PO QAM@0700 [facility] Last Admin: 12/17/22 06:44 Dose: 125 mcg Omeprazole (Omeprazole [address]) 40 mg PO DAILY@0700 [facility] Last Admin: 10/21/23 06:44 Dose: 40 mg Ondansetron HCl (Ondansetron 2 Mg/Ml Inj) 4 mg IVP Q4H PRN PRN Reason: Nausea Senna/Docusate Sodium (Sennosides/Docusate Tablet) 1 tab PO DAILY PRN Sodium Chloride (Sodium Chloride 0.9 % (Flush) 10 Ml Syringe) 5 ml IVF .FLUSH PRN Sodium Chloride (Sodium Chloride 0.9 % (Flush) 10 Ml Syringe) 5 ml IVF BID NATALIA Last Admin: 12/17/22 08:33 Dose: Not Given Sodium Chloride (0.9 % Sodium Chloride 250 Ml) 250 ml IV ONCE PRN Transfer Discharge Sum: Hosp Hospital Course Hospital course: Kat Valente is a 82 year old female who presented to the hospital with a 3 day history of weakness, anorexia, cough, and fever. Clinically, her exam and history was consistent with community-acquired pneumonia on the left and azithromycin + Rocephin was initiated. On hospital day 1, her fever persisted and she began having significant confusion. She then became hypotensive. CT chest abdomen pelvis performed and fluid resuscitation initiated (patient received total of 4 L normal saline). Repeat labs revealed an increase in lactate from 0.8 --> 6 and an increase in procalcitonin from 4--->66 (over the course of 8 hours). CT revealed a 6 mm obstructing stone in the distal right ureter; at this time we transitioned to vancomycin and Zosyn for antibiotics. Central line was placed and norepinephrine initiated. Been reviewed case with Dr. Loera, manager of customer billing, from [facility], who agrees to accept the patient in transfer to their ICU. At time of transfer: - patient has received 4 L of normal saline in fluid resuscitation - she has received Zosyn and vancomycin - both blood and urine cultures are currently exhibiting no growth to date Time Spent with Patient Time attestation: Total time spent providing and/or coordinating transfer services: Total time spent: Greater than 30 minutes Exam Narrative: Exam Narrative: GEN: Patient appears toxic in bed, she is answering questions in a soft voice HEENT: Normal external ears, EOMIs bilaterally, no scleral icterus CV: Irregular and tachycardic R: Decreased bilateral bases, tachypneic Ext: wwp, no concerning edema Skin: No concerning skin lesions or rashes on exposed skin Psych: Appropriate Const: Vital Signs, click to edit/add: Vital Signs - 24 hr 12/16/22 20:30 12/16/22 20:38 12/16/22 20:38 Temperature 100.2 F H 100.5 F H Pulse Rate Pulse Rate [Pulse Oximeter] 92 Respiratory Rate 24 24 Blood Pressure Blood Pressure [Le ft Arm] 140/77 H Blood Pressure [Ri ght Arm] Pulse Oximetry 93 93 Oxygen Delivery Me thod Room Air Room Air Oxygen Flow Rate 12/16/22 23:00 12/16/22 23:00 12/16/22 23:00 Temperature Pulse Rate 71 Pulse Rate [Pulse Oximeter] 80 Respiratory Rate 22 22 Blood Pressure Blood Pressure [Le ft Arm] Blood Pressure [Ri ght Arm] Pulse Oximetry 95 Oxygen Delivery Me thod Room Air Oxygen Flow Rate 12/16/22 23:00 12/16/22 23:05 12/17/22 04:00 Temperature 98.9 F 98.9 F 97.7 F Pulse Rate Pulse Rate [Pulse Oximeter] 80 79 Respiratory Rate 22 20 Blood Pressure Blood Pressure [Le ft Arm] 135/56 L 148/73 H Blood Pressure [Ri ght Arm] Pulse Oximetry 95 98 Oxygen Delivery Me thod Room Air Room Air Oxygen Flow Rate 12/17/22 07:38 12/17/22 07:41 12/17/22 07:47 Temperature 98.2 F Pulse Rate 82 Pulse Rate [Pulse Oximeter] 72 Respiratory Rate 20 20 Blood Pressure Blood Pressure [Le ft Arm] 152/75 H Blood Pressure [Ri ght Arm] Pulse Oximetry 97 97 Oxygen Delivery Me thod Room Air Room Air Oxygen Flow Rate 12/17/22 11:20 12/17/22 12:12 12/17/22 14:16 Temperature 98.3 F 101.1 F H Pulse Rate Pulse Rate [Pulse Oximeter] 110 H Respiratory Rate 24 Blood Pressure Blood Pressure [Le ft Arm] 156/106 H 154/63 H Blood Pressure [Ri ght Arm] Pulse Oximetry 94 Oxygen Delivery Me thod OxyMask Oxygen Flow Rate 12/17/22 15:00 12/17/22 15:00 12/17/22 15:05 Temperature 100.2 F H 100.2 F H Pulse Rate Pulse Rate [Pulse Oximeter] 110 H Respiratory Rate 28 H 28 H Blood Pressure Blood Pressure [Le ft Arm] Blood Pressure [Ri ght Arm] 105/54 L Pulse Oximetry 94 94 Oxygen Delivery Me thod Room Air Room Air Oxygen Flow Rate 12/17/22 15:50 12/17/22 16:30 12/17/22 16:45 Temperature 97.0 F L Pulse Rate Pulse Rate [Pulse Oximeter] 108 H 106 H 104 H Respiratory Rate 30 H 33 H 36 H Blood Pressure Blood Pressure [Le ft Arm] 72/49 L 78/45 L Blood Pressure [Ri ght Arm] 85/48 L Pulse Oximetry 93 94 Oxygen Delivery Me thod Room Air Nasal Cannula Oxygen Flow Rate 2 12/17/22 16:51 12/17/22 17:00 12/17/22 17:11 Temperature 98.6 F Pulse Rate 98 Pulse Rate [Pulse Oximeter] 104 H 103 H Respiratory Rate 28 H 34 H 34 H Blood Pressure Blood Pressure [Le ft Arm] 78/45 L 87/59 L Blood Pressure [Ri ght Arm] Pulse Oximetry 95 91 94 Oxygen Delivery Me thod Nasal Cannula Nasal Cannula Oxygen Flow Rate 2 12/17/22 17:13 12/17/22 17:15 12/17/22 17:17 Temperature 101.1 F H Pulse Rate 95 105 H 102 H Pulse Rate [Pulse Oximeter] Respiratory Rate 35 H 34 H Blood Pressure 100/33 L Blood Pressure [Le ft Arm] Blood Pressure [Ri ght Arm] Pulse Oximetry 92 94 Oxygen Delivery Me thod Oxygen Flow Rate Discharge Plan Discharge Disposition: General Acute Hospital Date of Admission: 12/16/22 20:53 Attending Provider on Discharge: Sita Keyes Primary Care Provider: Provider,Not a Local Condition: Guarded Discharge Orders: Transfer of Care to Other Hospital (ORDER); Ordered 12/17/22 Ordered By: Sita Keyes Oxygen: Yes Oxygen Delivery Method: Nasal Cannula Oxygen Flow Rate: 2 L/min Urinary Catheter: Yes Drips/Lines: Norepinephrine, IVFs Services not available here: ICU level care
--- NOTE | 2022-12-17 19:16 | ED.NURSE ---
Patient arousable and able to communicate appropriately, MD Gomes placed IJ line, fluids and norepi started through. L 22g vanco and NS, R ac NS. ems at bedside for transfer, report given.
--- NOTE | 2022-12-17 19:45 | PC.NURSE ---
discharge, pt left to [facility] 2032 by [facility]. pt was moved to [facility]cu2 from [facility] and low BP and changed in LOC. 2nd IV was started and central line was placed by ED MD. BP taken every 10 min. Baker was started tele was A-fib with Hr 100-140's. o2 was applied 2L nc. Fluids NS hung wide open and Vanco and Zosyn was given., abd CT was done. EKG and Labs done, 2 RNs in the room most of the time. chest x ray was done to check placement. md was in several times. family was called and updated.
== END 2022-12-17 18:50 | disposition short-term general hospital (02) | DRG 871 ==
LOC: ED 19:32 → MEDSURG 20:16
PROVIDERS: Internal Medicine; Admitting Provider Family Medicine; Emergency Provider Emergency Medicine; Visit Provider Family Medicine
DX: A41.9 Sepsis, unspecified organism (principal); J18.9 Pneumonia, unspecified organism; G93.49 Other encephalopathy; N17.9 Acute kidney failure, unspecified; N20.2 Calculus of kidney with calculus of ureter; E86.0 Dehydration; I48.0 Paroxysmal atrial fibrillation; F41.9 Anxiety disorder, unspecified; D69.6 Thrombocytopenia, unspecified; Z79.01 Long term (current) use of anticoagulants; I10 Essential (primary) hypertension; R43.8 Other disturbances of smell and taste; D50.9 Iron deficiency anemia, unspecified; U09.9 Post COVID-19 condition, unspecified; R43.2 Parageusia; E66.9 Obesity, unspecified; W06.XXXA Fall from bed, initial encounter; E03.9 Hypothyroidism, unspecified; Y92.003 Bedroom of unspecified non-institutional (private) residence as the place of occurrence of the external cause; Z68.39 Body mass index [BMI] 39.0-39.9, adult
CPT/HCPCS: 36415; 51701; 71045; 71046; 71260; 74177; 80053; 81001; 82728; 82803; 82947; 83540; 83550; 83605; 83690; 83880; 84145; 84443; 84484; 85025; 86850; 86900; 86901; 86922; 87040; 87086; 87631; 93005; 93306; 97161; 97162; 97166; 99284; 99285; G0378; A9270; J0696; J2543; J3370; J7030; J7042; J7120; Q9967

== ENCOUNTER 2022-12-17 18:55 | Outpatient (CLI) | payer MEDICARE, BC, SELFPAY | END 2022-12-17 18:56 | disposition home or self-care (01) | LOC: AMB 12-20 11:47 | PROVIDERS: Visit Provider Family Medicine | DX: N20.0 Calculus of kidney (principal) | CPT/HCPCS: A0425; A0434 ==

== ENCOUNTER 2023-05-11 09:28 | Outpatient (REF) | payer MEDICARE, BC, SELFPAY ==
[2023-05-11 09:58] LABS: Basophils Absolute Auto 0.03 K/uL (0.00-0.30); Basophils Percent Auto 0.4 % (0.0-3.0); Eosinophils Absolute Auto 0.13 K/uL (0.00-0.50); Eosinophils Percent Auto 1.9 % (0.0-7.0); Hematocrit 32.7 % (33.0-51.0); Immature Granulocytes Abs Auto 0.05 K/uL (0.00-0.30); Immature Granulocytes Pct Auto 0.7 %; Mean Corpuscular HGB Conc 31 gm/dL (32-36); Mean Corpuscular Hemoglobin 29 pg (26-34); Mean Corpuscular Volume 93 fL (80-100); Platelet Count* 206 K/uL (140-440); RDW Coefficient of Variation % 15.7 % (11.5-15.5); Red Blood Count 3.51 m/uL (4.00-5.20)
[2023-05-11 10:00] LABS: Slide Review Reflex No
[2023-05-11 10:15] LABS: Chloride* 103 mmol/L (96-114); Sodium* 136 mmol/L (135-149)
[2023-05-11 10:18] LABS: Anion Gap 6 mEq/L (7-15); Blood Urea Nitrogen* 15 mg/dL (7-30); Carbon Dioxide* 27 mmol/L (20-32); Creatinine* 1.1 mg/dL (0.5-1.5); Estimated Glomerular Filt Rate 50 ml/min; Glucose* 126 mg/dL (60-115)
[2023-05-11 10:19] LABS: Calcium* 9.6 mg/dL (8.4-10.6)
== END 2023-05-11 09:29 | disposition home or self-care (01) ==
LOC: NPINS 09:28
PROVIDERS: Visit Provider Nurse Practitioner Adult Health
DX: D64.9 Anemia, unspecified (principal)
CPT/HCPCS: 80048; 85025